=== PATIENT | female | born 1990 | race Two or more races ===

== ENCOUNTER 2017-01-26 18:50 | Emergency (ER) | payer OTHER ==
[~2017-01-26] VITALS: Ht 162.6 cm; Wt 50.0 kg
[2017-01-26 19:57] VITALS: BP 112/80
[2017-01-26] MEDS ORDERED: BACITRACIN ZINC OINT 500U/GM, 0.9 GM ONE (19:57)
[2017-01-26 20:16] LABS: BLOOD UREA NITROGEN 14 mg/dL (7-18)
[2017-01-26 20:18] LABS: HEMATOCRIT 44.5 % (34.6-47.8); HEMOGLOBIN 15.1 g/dL (11.7-16.4); WHITE BLOOD COUNT 10.6 x10^3/uL (3.4-10)
[2017-01-26 20:22] LABS: ACETAMINOPHEN < 2 mcg/mL (10-30); ASPARTATE AMINO TRANSFERASE 19 U/L (15-37)
[2017-01-26 20:44] LABS: DAU SCREEN DISCLAIMER
== END 2017-01-26 22:35 | disposition home or self-care (01) ==
LOC: ED 22:00
DX: F32.89 Other specified depressive episodes (principal); F12.10 Cannabis abuse, uncomplicated; F15.10 Other stimulant abuse, uncomplicated; F32.9 Major depressive disorder, single episode, unspecified
CPT/HCPCS: 36415; 80053; 80307; 80329; 84703; 85025; 99284; G0479; G0480